=== PATIENT | male | born 1965 | race Caucasian/White ===

== ENCOUNTER 2019-01-11 21:29 | Emergency (ER) | payer MEDICAID ==
[~2019-01-11] VITALS: Ht 190.5 cm; Wt 88.5 kg
[2019-01-11 21:35] VITALS: BP_SYST 139
--- NOTE | 2019-01-11 22:00 | NUR ---
Patient to ER bed 1 to gown for evaluation. Side rails up.
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
[2019-01-11] MEDS ORDERED: CLINDAMYCIN 900 mg/50mL D5W 50 ML IV ONE (22:45)
[2019-01-11] MEDS ORDERED: fentaNYL CITRATE/PF 100 MCG/2 ML AMP IVP ONE (22:45)
[2019-01-11] MEDS ORDERED: CLINDAMYCIN PHOSPHATE 300 MG/2 ML VIAL IM ONE (23:30)
--- NOTE | 2019-01-11 23:30 | NUR ---
Er MD Dr. Billingsley at bedside performing laceration repair with tim.
--- NOTE | 2019-01-12 | NUR ---
Pt refused clindamycin IM per MD order. MD order made aware.
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
[2019-01-12 00:11] VITALS: BP_SYST 139
--- NOTE | 2019-01-12 00:11 | NUR ---
Patient given written and verbal discharge instructions and verbalizes understanding. ER MD Dr. Billingsley discussed with patient the results and treatment provided. Patient in stable condition. ID arm band removed. IV catheter removed intact and dressing applied, no active bleeding. Rx of clindamycin, tramadol and motrin given. Patient educated on pain management and to follow up with PMD. Pain Scale 0/10. Opportunity for questions provided and answered. Medication side effect fact sheet provided.
== END 2019-01-12 00:11 | disposition home or self-care (01) ==
LOC: SED 21:29
DX: S06.0X9A Concussion with loss of consciousness of unspecified duration, initial encounter (principal); S02.2XXA Fracture of nasal bones, initial encounter for closed fracture; S01.01XA Laceration without foreign body of scalp, initial encounter; Z88.2 Allergy status to sulfonamides; Y04.0XXA Assault by unarmed brawl or fight, initial encounter; Y93.89 Activity, other specified; Y92.89 Other specified places as the place of occurrence of the external cause; Y99.8 Other external cause status
CPT/HCPCS: 12002; 70450; 70486; 72125; 96374; 99284; J3010; J3490

== ENCOUNTER 2023-02-11 17:50 | Emergency (ER) | payer MEDICAID ==
[~2023-02-11] VITALS: Ht 182.9 cm; Wt 79.4 kg
[2023-02-11 17:50] VITALS: BP_SYST 128; PULSE 88; RESP 18; TEMP 98.2; O2SAT 96
[2023-02-11 19:24] LABS: BASOPHILS % (AUTO) 0.4 % (0.0-2.0); EOSINOPHILS % (AUTO) 0.6 % (0.0-4.0); HEMOGLOBIN 13.6 g/dL (14.0-18.0); LYMPHOCYTES # (AUTO) 1.1 K/uL (1.0-5.5); LYMPHOCYTES % (AUTO) 14.3 % (20.5-51.5); MEAN CORPUSCULAR HEMOGLOBIN 30 pg (27-31); MEAN CORPUSCULAR HGB CONC 33 % (32-36); MEAN CORPUSCULAR VOLUME 91 fL (79.0-98.0); MONOCYTES # (AUTO) 0.4 K/uL (0.0-1.0); MONOCYTES % (AUTO) 5.4 % (1.7-9.3); NEUTROPHILS # (AUTO) 6.1 K/uL (1.8-7.7); NEUTROPHILS % (AUTO) 79.3 % (40.0-70.0); PLATELET COUNT (AUTO) 238 K/uL (130-430); RED BLOOD CELL COUNT(AUTO) 4.52 MIL/uL (4.2-6.2); RED CELL DISTRIBUTION WIDTH 13.8 % (9.0-15.0); WHITE BLOOD COUNT (AUTO) 7.7 K/uL (4.8-10.8)
[2023-02-11 19:36] LABS: ANION GAP 8 (5-15); CALCIUM 8.7 mg/dL (8.4-11.0); CARBON DIOXIDE 29 mmol/L (23-29); CHLORIDE 104 mmol/L (98-107); CREATININE 1.17 mg/dL (0.55-1.30); GFR AFRICAN AMERICAN 83 mL/min (>90); GLUCOSE 83 mg/dL (74-106); POTASSIUM 3.9 mmol/L (3.5-5.1); SODIUM SERUM 141 mmol/L (136-145); UREA NITROGEN, BLOOD 33 mg/dL (8-21)
[2023-02-11 19:39] LABS: GFR NON AFRICAN-AMERICAN 68 mL/min (>90); SALICYLATE 1 mg/dL (3-30)
[2023-02-11 19:40] LABS: ALANINE AMINOTRANSFERASE 15 U/L (12-78); ALBUMIN 3.9 g/dL (3.4-4.8); ASPARTATE AMINOTRANSFERASE 21 U/L (10-37); TOTAL BILIRUBIN 0.7 mg/dL (0.0-1.0); TOTAL PROTEIN, SERUM 7.2 g/dL (6.4-8.3)
[2023-02-11 19:41] LABS: ACETAMINOPHEN < 1 ug/mL (1-30); ALCOHOL, BLOOD < 3 mg/dL (<10)
[2023-02-12 00:34] LABS: BARBITURATE, URINE NEGATIVE (NEG <=200); BENZODIAZEPINE, URINE NEGATIVE (NEG <=150); CANNABINOID, URINE POSITIVE (NEG <=50); COCAINE, URINE NEGATIVE (NEG <=150); METHAMPHETAMINES SCREEN,URINE POSITIVE (NEG <=500); OPIATE, URINE NEGATIVE (NEG <=100); PHENCYCLIDINE SCREEN,URINE NEGATIVE (NEG <=25); UR TRICYCLIC ANTIDEPRESSANTS NEGATIVE (NEG <=300); URINE AMPHETAMINE POSITIVE (NEG <=500); URINE METHADONE NEGATIVE (NEG <=200); URINE OXYCODONE SCREEN NEGATIVE (NEG <=100); URINE PROPOXYPHENE SCREEN NEGATIVE (NEG <=300)
[2023-02-12] MEDS ORDERED: IBUPROFEN 600 MG TABLET PO ONE (13:15)
[2023-02-12 18:19] VITALS: BP_SYST 125; PULSE 74; RESP 18; TEMP 97.1; O2SAT 97
== END 2023-02-12 18:19 | disposition home or self-care (01) ==
LOC: SED 17:50
DX: T14.91XA Suicide attempt, initial encounter (principal); F12.90 Cannabis use, unspecified, uncomplicated; F15.129 Other stimulant abuse with intoxication, unspecified; F11.129 Opioid abuse with intoxication, unspecified; Z88.2 Allergy status to sulfonamides; Z79.899 Other long term (current) drug therapy; Z20.822 Contact with and (suspected) exposure to COVID-19; Y93.89 Activity, other specified; Y92.89 Other specified places as the place of occurrence of the external cause; Y99.8 Other external cause status
CPT/HCPCS: 99285; 87426; 80307; 80053; 85025; 36415; 93005; G0480; G0481; G0482